=== PATIENT | female | born 1980 | race Caucasian/White ===

== ENCOUNTER 2025-10-22 06:57 | Emergency (ER) | payer OTHER, SELFPAY ==
[2025-10-22 06:59] VITALS: BMI 26.6
[2025-10-22 07:09] VITALS: BP 116/77; PULSE 97; RESP 18; TEMP 36.5; O2SAT 96
--- NOTE | 2025-10-22 07:35 | EDNOTE_ITS ---
ED Wound/Laceration-RME/HPI General Chief Complaint: Wound/Laceration Stated Complaint: RT LEG WOUND SWEILLING Time Seen by Provider: 10/22/25 07:01 Arrival date/time: 10/22/25 06:57 This is a 45-year-old female that comes into the emergency room with complaints of chronic leg ulcer to the right lower extremity. Patient states she has chronic ulcers to the leg for a while. Patient states that started off with a dog bite years ago and she is always had some kind of dressing on her leg. Patient also has bilateral chronic lower leg swelling on and off. Patient states is hard for her to elevate her legs. Patient states she has not seen her primary doctor but will make an appointment soon. Patient denies fever or chills. Patient denies any other symptoms. Patient denies any trauma to her leg. Related Data Allergies Allergy/AdvReac Type Severity Reaction Status Date / Time No Known Allergies Allergy Verified 10/22/25 06:59 Review of Systems Review of Systems Systems Reviewed: All systems reviewed, normal except as documented Past Medical History Past Medical History Comments PMH COMMENT: Denies ED Exam Narrative Physical exam: VITAL SIGNS: Reviewed. GENERAL APPEARANCE: Alert and interactive, follows commands, no acute distress HEAD AND FACE: Non-traumatic. ENT: PERRL, conjuctiva pink and clear, eyelid no trauma, Mucous membrane moist. NECK: Supple, nontender, no nuchal rigidity. CHEST: No tenderness, no crepitus, no paradoxical movement, no retractions. LUNGS: breathing even and unlabored HEART: Regular rate, cap refill less than 2 seconds ABDOMEN: Soft, nondistended, soft NEUROLOGICAL: Gross motor function intact sensory function intact, Appropriate for age. MUSCULOSKELETAL: low back nontender, full range of motion. EXTREMITIES: Distal neurovascular status intact bilateral foot SKIN: Color pink, dry, bilateral lower extremity swelling. Patient has wounds to posterior lower calf area each approximately 3 to 4 mm patient has about 3 wounds in the back of her leg. Patient has some surrounding erythema around these wounds. No fluctuance. Patient's feet are warm good distal pulses. Course Quality Measures none Orders Category Date Time Status Wound Care [Wound Care] NOW Care 10/22/25 07:47 Completed Referral Wound Care Stat Cons 10/22/25 07:46 Active Doxycycline [Vibramycin] Med 10/22/25 07:46 Discontinued 100 mg PO X1 ONE cefTRIAXone [Rocephin] 1,000 mg Med 10/22/25 07:47 Discontinued Lidocaine 1% Pf Vial 5ml [Xylocaine 1% Pf 5 ml] 2.1 ml IM X1 Vital Signs Vital signs: Vital Signs Temperature 97.7 F 10/22/25 07:09 Pulse Rate 97 10/22/25 07:09 Respiratory Rate 18 10/22/25 07:09 Blood Pressure 116/77 10/22/25 07:09 Pulse Oximetry (%) 96 10/22/25 07:09 Oxygen Delivery Method Room Air 10/22/25 07:09 Wound / Laceration MDM Narrative MDM Narrative:: I spoke to patient at length. Patient states she has been cleaning her wounds with hydrogen peroxide and also putting triple antibiotic ointment on them. Patient states these wounds come and go. She also has some mild abrasions to her hands. Patient states she scratches and then she will get a little area of erythema. I do not know if patient spreading infection. Will treat for cellulitis. I will give patient a dose of Rocephin here and also doxycycline. And send patient home with Keflex and doxycycline. Will dress patient's wound I instructed patient to no longer clean it with hydrogen peroxide as it could be irritating the skin and causing it to not heal correctly. I told patient not to put triple antibiotic ointment on patient's wound. I told her to just keep it clean and dry. Patient is to follow-up with primary provider in 1 to 2 days. come back to the emergency room symptoms change or worsen. I also told patient that I put in a referral for wound care and they should contact her. Patient verbalized understanding feels comfortable plan of care Neliaon dictation: Although this document has been carefully reviewed, there may still be some phonetic and other typographical errors. These errors are purely grammatical due to imperfections in the software program and should not be construed in any way to compromise the substance of the patient's medical care during this visit. Patient data External records reviewed:: [facility] previous records Clinical information provided by:: patient Social determinants that could affect healthcare access:: none Patient has the following chronic illnesses:: See note How is presenting disease/condition affected by chronic disease/condition?: no chronic disease Evaluation data The following diagnostics were reviewed and interpreted by me:: other (specify) (None) Lab and/or radiology exams considered but not ordered:: None Interpretation Summary: See note Medications / Prescriptions Medications or Prescriptions considered but not ordered:: None Medication administrations:: Medication Administration History Discontinued Medications Ceftriaxone Sodium 1,000 mg/ (Lidocaine HCl 2.1 ml) 0 mg IM X1 ONE Stop: 10/22/25 07:48 Last Admin: 10/22/25 07:59 Dose: 1,000 mg Documented By: GM Doxycycline Hyclate (Doxycycline 100 Mg Tablet) 100 mg PO X1 ONE Stop: 10/22/25 07:47 Last Admin: 10/22/25 07:55 Dose: 100 mg Documented By: GM see mar Consultations Consultation(s) initiated? (list below): No Diagnosis Wound Differential Diagnosis: laceration, abscess, abrasion and avulsion of skin Most likely diagnosis given after review of the tests above:: See note Admission Indicated Admission indicated?: not indicated Admission Request Was there a request for admission?: No Disposition Plan Disposition Plan: Discharge Discharge Attestation Discharge Attestation: The patient and all family members were given an opportunity to ask questions and understood the discharge instructions. Discharge instructions specifically effects, indications for sooner follow up or return to the emergency department, and the expected course of current diagnosis. Patient condition: Stable Discharge Plan Plan Patient Disposition: HOME (Self Care) Patient condition on transfer: Stable Problem List Clinical Impression: Chronic ulcer of right leg, Cellulitis Patient/Caregiver Discharge Instructions Discharge Activity: activity as tolerated Education Materials: ED Cellulitis, ED Wound Care Additional Instructions: Wound care ordered for home and should follow-up. Follow up with primary provider in 1-2 days. Come back to ED if symptoms change or worsen keep wound clean and dry please. Print Language: Italian Stand Alone Forms: [employer] Award Info., Patient Portal Info Letter PA/HOSPITAL CHIEF FINANCIAL OFFICER Supervising Physician PA/HOSPITAL CHIEF FINANCIAL OFFICER Supervising Physician: earnest
[2025-10-22] MEDS: DOXYCYCLINE 100 MG TABLET PO (07:55)
== END 2025-10-22 08:15 | disposition home or self-care (01) ==
LOC: SERX 08:05
PROVIDERS: Emergency Provider Emergency Medicine
DX: L97.919 Non-pressure chronic ulcer of unspecified part of right lower leg with unspecified severity (principal); L03.115 Cellulitis of right lower limb
CPT/HCPCS: 96372; 99283; J0696; J3490; A9270